=== PATIENT | female | born 1955 | race Caucasian/White ===

== ENCOUNTER 2016-07-19 04:23 | Emergency (ER) | payer OTHER ==
[~2016-07-19] VITALS: Ht 160 cm; Wt 56.3 kg
[2016-07-19 05:25] LABS: CHLORIDE 105 mEq/L (99-109); POTASSIUM 4.1 mEq/L (3.7-5.4); SODIUM 140 mEq/L (136-147)
[2016-07-19 05:28] LABS: EOSINOPHIL (%) 0.1 % (0-5); GLUCOSE 117 mg/dL (70-99); HEMATOCRIT 38.6 % (36.0-46.0); IMMATURE GRANULOCYTE (%) 0.9 % (0.0-0.7); IMMATURE GRANULOCYTE COUNT 0.1 K/uL; LYMPHOCYTE COUNT 0.7 K/uL (1.0-2.8); MCH 28.6 PG (29.0-34.0); MCHC 32.6 G/DL (30.0-36.0); MCV 87.7 FL (83-99); MEAN PLAT.VOLUME 9.6 uM^3 (9.5-12.4); MONOCYTE (%) 9.6 % (3-12); NEUTROPHIL (%) 82.8 % (45-76); PLATELET COUNT 306 K/uL (156-360); RBC DIS.WIDTH-CV 11.5 % (11.8-14.6); WHITE BLOOD COUNT 10.8 K/uL (4.1-10.2)
[2016-07-19 05:29] LABS: ANION GAP 8 MEQ/L (2-14)
[2016-07-19 05:30] LABS: TOTAL BILIRUBIN 0.5 mg/dL (0.0-1.0)
[2016-07-19 05:31] LABS: ALKALINE PHOSPHATASE 71 IU/L (3-129); GFR ESTIMATE (CALCULATED) > 59 mL/min/
[2016-07-19 05:32] LABS: UREA NITROGEN (BUN) 11 mg/dL (9-23)
[2016-07-19 05:35] LABS: LIPASE 13 U/L (1.0-51.0)
[2016-07-19 06:29] LABS: ADD MIUA? NO; BILIRUBIN NEGATIVE; BLOOD NEGATIVE; COLOR STRAW ((YELLOW)); GLUCOSE (STRIP) NEGATIVE; KETONES 5; LEUKOCYTES NEGATIVE; NITRITE NEGATIVE; PROTEIN (STRIP) NEGATIVE; SPECIFIC GRAVITY 1.028 (1.000-1.030); UCUL ADDED? NO; UROBILINOGEN 0.2 MG/DL (0.2-1.0)
[2016-07-19] MEDS ORDERED: BACTRIM,SEPT1 TABLET PO (07:12)
[2016-07-19] MEDS ORDERED: ZOFRAN ODT4 MG PO (07:12)
[2016-07-19] MEDS ORDERED: NORCO 5/3251 TABLET PO (07:12)
[2016-07-19 07:47] VITALS: BP 128/81
== END 2016-07-19 07:51 | disposition home or self-care (01) ==
LOC: EME 04:23
PROVIDERS: Emergency Medicine
DX: N10 Acute pyelonephritis (principal); Z87.442 Personal history of urinary calculi; Z88.6 Allergy status to analgesic agent
CPT/HCPCS: 74177; 80053; 81003; 83690; 85025; 87040; 87077; 87086; 87186; 99281; 99285; J0696; J1885; J2405; J3010; J7030; J7050